=== PATIENT | female | born 1990 | race African-American/Black ===

== ENCOUNTER 2019-04-05 16:13 | Emergency (ER) | payer OTHER ==
[~2019-04-05] VITALS: Ht 157.5 cm; Wt 120.8 kg
--- OUTSIDE RECORDS SUMMARY | 2019-04-05 16:16 | XMS REPORT | Continuity of Care Document ---
Author Author mInfo Address Unknown Phone Unavailable Care Team Providers Care Field Service Technician Poultry Name Role Phone Curiyo Information Fast Orientation Unavailable Unavailable Problems Problem Status Onset Date Classification Date Reported Comments Source NAUSEA/WEAKNESS Active 02/28/2016 [facility] ABSCESS Active 09/12/2015 [facility] Discharge Diagnosis: Abscess of forearm, right 05/27/2015 05/30/2015 [facility] ALLERGIC REACTION Active 05/26/2015 [facility] CONTRACTIONS Active 07/03/2013 [facility] Resolved 10/04/2012 Problem 03/03/2016 [facility] Resolved 10/04/2012 Problem 07/13/2013 [facility] Drug abuse Resolved Problem 03/03/2016 [facility] Drug abuse Resolved Problem 07/13/2013 [facility] NORMAL DELIVERY Active [facility] Medications Medication Details Route Status Patient Instructions Ordering Provider Order Date Source clindamycin 300 mg oral capsule 300 mg=1 cap, PO, Q6H, X 10 day, # 40 cap, 0 Refill(s) Active 05/27/2015 [facility] Tylenol 975 mg, 3 tab, Route: PO, Drug form: TAB, ONCE, Dosing Weight 104.545, kg, Priority: STAT, Start date: 05/27/15 2:10:00, Stop date: 05/27/15 2:10:00Notes: Do not exceed 4 gm/day. (Same as: Tylenol) Inactive 05/27/2015 [facility] influenza virus vaccine, inactivated 0.5 ml, Route: IM, Drug Form: SUSP, Daily, Start date: 07/06/13 9:00:00, Duration: 1 doses or times, Stop date: 07/06/13 9:00:00 IM No Longer Active SYSTEM 07/06/2013 [facility] Multivitamins oral tablet 1 tab, Route: PO, Drug Form: TAB, Dosing Weight 110, kg, Daily, Start date: 07/05/13 9:00:00, Duration: 30 day, Stop date: 08/03/13 9:00:00 PO No Longer Active Asumugha 07/05/2013 [facility] M-M-R II 0.5 mL, Route: SUB-Q, Drug Form: PDR/INJ, Dosing Weight 110, kg, ONCALL, Give only if patient rubella non-immune, Start date: 07/04/13 11:00:00, Duration: 1 doses or times SUB-Q No Longer Active Asumugha 07/04/2013 [facility] Dermoplast 20% topical spray 1 spray, Route: TOP, PRN, Drug form: SPRY, PRN Irritation, Start date: 07/04/13 10:48:00, Duration: 30 day, Stop date: 08/03/13 10:47:00 TOP No Longer Active Asumugha 07/04/2013 [facility] methylergonovine 0.2 mg, 1 mL, Route: IM, Drug form: INJ, PRN, Dosing Weight 110, kg, PRN Other -See Comment, Start date: 07/04/13 10:48:00, Duration: 30 day, Stop date: 08/03/13 10:47:00 IM No Longer Active Asumugha 07/04/2013 [facility] docusate 100 mg, 1 cap, Route: PO, Drug form: CAP, BID, Dosing Weight 110, kg, PRN Constipation, Start date: 07/04/13 10:48:00, Duration: 30 day, Stop date: 08/03/13 10:47:00 PO No Longer Active Asumugha 07/04/2013 [facility] ondansetron 4 mg, 2 mL, Route: IVP, Drug form: INJ, Q8H, Dosing Weight 110, kg, PRN Nausea & Vomiting, Start date: 07/04/13 10:48:00, Duration: 30 day, Stop date: 08/03/13 10:47:00 IVP No Longer Active Asumugha 07/04/2013 [facility] ibuprofen 600 mg, 1 tab, Route: PO, Drug form: TAB, Q6H, Dosing Weight 110, kg, PRN Pain Score 1-5, Start date: 07/04/13 10:48:00, Duration: 30 day, Stop date: 08/03/13 10:47:00 PO No Longer Active Asumugha 07/04/2013 [facility] bisacodyl 15 mg, 3 tab, Route: PO, Drug form: ECTAB, Daily, Dosing Weight 110, kg, PRN Other -See Comment, Start date: 07/04/13 10:48:00, Duration: 30 day, Stop date: 08/03/13 10:47:00 PO No Longer Active Asumugha 07/04/2013 [facility] lanolin topical 1 appl, Route: TOP, PRN, Drug form: CRM, PRN Other -See Comment, Start date: 07/04/13 10:48:00, Duration: 30 day, Stop date: 08/03/13 10:47:00 TOP No Longer Active Asumugha 07/04/2013 [facility] zolpidem 5 mg, 1 tab, Route: PO, Drug form: TAB, Bedtime, Dosing Weight 110, kg, PRN Sleep, Start date: 07/04/13 10:48:00, Duration: 30 day, Stop date: 08/03/13 10:47:00 PO No Longer Active Asumugha 07/04/2013 [facility] acetaminophen-hydrocodone 325 mg-5 mg oral tablet 1 tab, Route: PO, Drug Form: TAB, Dosing Weight 110, kg, Q4H, PRN Pain Score 1-3, Start date: 07/04/13 10:48:00, Duration: 30 day, Stop date: 08/03/13 10:47:00 PO No Longer Active Asumugha 07/04/2013 [facility] acetaminophen 650 mg, 2 tab, Route: PO, Drug form: TAB, Q4H, Dosing Weight 110, kg, PRN Headache 1-3, Start date: 07/04/13 10:48:00, Duration: 30 day, Stop date: 08/03/13 10:47:00 PO No Longer Active Asumugha 07/04/2013 [facility] Lactated Ringers 1000ml+Pitocin 20 units IV (Premix) 20 unit 20 unit, 1,000 mL, Rate: 125 ml/hr, Infuse over: 8 hr, Dosing Weight 110, kg, Route: IV, Total Volume: 1,000 mL, Start date: 07/04/13 10:48:00, Duration: 2 day, Stop date: 07/06/13 10:47:00, Replace Every: 8 hr IV No Longer Active Asumugha 07/04/2013 [facility] Lactated Ringers IV 1,000 mL 1,000 mL, Rate: 100 ml/hr, Infuse over: 10 hr, Route: IV, Dosing Weight 110 kg, Total Volume: 1,000, Start date: 07/04/13 10:48:00, Duration: 30 day, Stop date: 08/03/13 10:47:00 IV No Longer Active Asumugha 07/04/2013 [facility] Demerol HCl 50 mg, Route: IV, Q4H, Dosing Weight 110, kg, Start date: 07/04/13 0:00:00, Duration: 4 day, Stop date: 07/07/13 20:00:00 IV No Longer Active Asumugha 07/04/2013 [facility] Demerol HCl 50 mg, 1 mL, Route: IV, Drug form: INJ, Q4H, Dosing Weight 110, kg, PRN Pain Score 7-10, Start date: 07/03/13 20:30:00, Duration: 4 day, Stop date: 07/07/13 20:29:00 IV No Longer Active Asumugha 07/04/2013 [facility] Phenergan + Sodium Chloride 0.9% IV 50 mL 12.5 mg, 0.5 mL, Route: IVPB, Q4H, Dosing Weight 110, kg, PRN Nausea, Start date: 07/03/13 20:27:00, Duration: 30 day, Stop date: 08/02/13 20:26:00 IVPB No Longer Active Asumugha 07/04/2013 [facility] oxytocin-add to current IV 20 unit, 2 mL, Route: INJ, Drug form: SOLN, ONCALL, Dosing Weight 110, kg, Start date: 07/03/13 14:00:00, Duration: 2 day, Stop date: 07/05/13 13:59:00 INJ No Longer Active Asumugha 07/03/2013 [facility] citric acid-sodium citrate 30 mL, Route: PO, Drug Form: SOLN, Dosing Weight 110, kg, ONCALL, Start date: 07/03/13 14:00:00, Duration: 30 day, Stop date: 08/02/13 13:59:00 PO No Longer Active Asumugha 07/03/2013 [facility] carboprost 250 microgram, 1 mL, Route: IM, Drug form: INJ, ONCALL, Dosing Weight 110, kg, Start date: 07/03/13 14:00:00, Duration: 30 day, Stop date: 08/02/13 13:59:00 IM No Longer Active Asumugha 07/03/2013 [facility] famotidine 20 mg, 2 mL, Route: IVP, Drug form: INJ, ONCALL, Dosing Weight 110, kg, Start date: 07/03/13 14:00:00, Duration: 30 day, Stop date: 08/02/13 13:59:00 IVP No Longer Active Asumugha 07/03/2013 [facility] misoprostol 1,000 microgram, 5 tab, Route: AZ, Drug form: TAB, ONCALL, Dosing Weight 110, kg, Start date: 07/03/13 14:00:00, Duration: 1 doses or times AZ No Longer Active Asumugha 07/03/2013 [facility] methylergonovine 0.2 mg, 1 mL, Route: IM, Drug form: INJ, ONCALL, Dosing Weight 110, kg, Start date: 07/03/13 14:00:00, Duration: 30 day, Stop date: 08/02/13 13:59:00 IM No Longer Active Asumugha 07/03/2013 [facility] Cervidil 10 mg, 1 supp, Route: VAG, Drug form: INS, ONCE, Dosing Weight 110, kg, Start date: 07/03/13 13:59:00, Duration: 1 doses or times, Stop date: 07/03/13 13:59:00 VAG No Longer Active Asumugha 07/03/2013 [facility] terbutaline 0.25 mg, 0.25 mL, Route: SUB-Q, Drug form: INJ, PRN, Dosing Weight 110, kg, PRN Other -See Comment, Start date: 07/03/13 13:59:00, Duration: 1 doses or times, Stop date: Limited # of times SUB-Q No Longer Active Asumugha 07/03/2013 [facility] ondansetron 4 mg, 2 mL, Route: IVP, Drug form: INJ, Q8H, Dosing Weight 110, kg, PRN Nausea & Vomiting, Start date: 07/03/13 13:59:00, Duration: 30 day, Stop date: 08/02/13 13:58:00 IVP No Longer Active Asumugha 07/03/2013 [facility] lidocaine 1% 20 mL, Route: PERCUT, Drug Form: INJ, Dosing Weight 110, kg, PRN, PRN Other -See Comment, Start date: 07/03/13 13:59:00, Duration: 1 doses or times, Stop date: Limited # of times PERCUT No Longer Active Asumugha 07/03/2013 [facility] Lactated Ringers IV 1,000 mL 1,000 mL, Rate: 125 ml/hr, Infuse over: 8 hr, Route: IV, Dosing Weight 110 kg, Total Volume: 1,000, Start date: 07/03/13 13:59:00, Duration: 30 day, Stop date: 08/02/13 13:58:00 IV No Longer Active Asumugha 07/03/2013 [facility] Lactated Ringers 1000ml+Pitocin 20 units IV (Premix) 20 unit 20 unit, 1,000 mL, Rate: 125 ml/hr, Infuse over: 8 hr, Dosing Weight 110, kg, Route: IV, Total Volume: 1,000 mL, Start date: 07/03/13 13:59:00, Duration: 2 day, Stop date: 07/05/13 13:58:00, Replace Every: 8 hr IV No Longer Active Asumugha 07/03/2013 [facility] lidocaine 1% injectable solution 0.25 mL, Route: INTRADERM, Drug Form: INJ, Dosing Weight 110, kg, PRN, PRN Other -See Comment, Start date: 07/03/13 13:59:00, Duration: 30 day, Stop date: 08/02/13 13:58:00 INTRADERM No Longer Active Asumugha 07/03/2013 [facility] Lactated Ringers Injection IV 1,000 mL 1,000 mL, Rate: 100 ml/hr, Infuse over: 10 hr, Route: IV, Dosing Weight 110 kg, Total Volume: 1,000, Bolus for regional anesthesia per unit protocol, Start date: 07/03/13 13:59:00, Duration: 30 day, Stop date: 08/02/13 13:58:00 IV No Longer Active Asumugha 07/03/2013 [facility] Lactated Ringers 1000ml+Pitocin 20 units IV (Premix Titrate) 20 unit 20 unit, 1,000 mL, Rate: Titrate, Dosing Weight 110, kg, Route: IV, Total Volume: 1,000 mL, Start date: 07/03/13 13:58:00, Duration: 2 day, Stop date: 07/05/13 13:57:00, Replace Every: 24 hr IV No Longer Active Asumugha 07/03/2013 [facility] Allergies, Adverse Reactions, Alerts Substance Category Reaction Severity Reaction type Status Date Reported Comments Source Stadol Assertion itch Drug allergy Active [facility] sulfa drugs Assertion Drug allergy Active [facility] Immunizations Immunization Date Given Site Status Last Updated Comments Source influenza virus vaccine, inactivated 07/06/2013 Right deltoid completed Efren [facility] influenza virus vaccine, inactivated 07/06/2013 completed Efren [facility] Results Order Name Results Value Reference Range Date Interpretation Comments Source HEMATOLOGY Hct 28.9 36.0 - 48.0 07/05/2013 LOW [facility] HEMATOLOGY Hgb 9.2 12.0 - 16.0 07/05/2013 LOW [facility] BLOOD BANK RESULTS Rhig Reqd See Note 1 (07/03/2013 15:25:00) 07/03/2013 Normal <sup>1</sup>Result Comment: 07/03/2013 17:07 [id number]
This patient is not a candidate for Rh(O)D immune globulin. [facility] BLOOD BANK RESULTS Antibody Scrn Negative (07/03/2013 15:25:00) 07/03/2013 Normal [facility] BLOOD BANK RESULTS ABO/Rh O POS 07/03/2013 Unknown [facility] HEMATOLOGY Segs-Bands # 4.2 1.5 - 8.1 07/03/2013 Normal [facility] HEMATOLOGY Basophils # 0.0 0.0 - 0.2 07/03/2013 Normal [facility] HEMATOLOGY Eosinophils # 0.1 0.0 - 0.5 07/03/2013 Normal [facility] HEMATOLOGY Lymphocytes # 1.0 1.0 - 5.5 07/03/2013 Normal [facility] HEMATOLOGY Monocytes # 0.4 0.0 - 0.8 07/03/2013 Normal [facility] HEMATOLOGY Basophils 0.2 0.0 - 1.0 07/03/2013 Normal [facility] HEMATOLOGY Segs 73.4 45.0 - 75.0 07/03/2013 Normal [facility] HEMATOLOGY Lymphocytes 17.8 20.0 - 40.0 07/03/2013 LOW [facility] HEMATOLOGY Monocytes 7.6 2.0 - 12.0 07/03/2013 Normal [facility] HEMATOLOGY Eosinophils 1.0 0.0 - 4.0 07/03/2013 Normal [facility] HEMATOLOGY Platelet 300 133 - 450 07/03/2013 Normal [facility] HEMATOLOGY MPV 8.1 7.4 - 10.4 07/03/2013 Normal [facility] HEMATOLOGY RBC 3.86 4.20 - 5.40 07/03/2013 LOW [facility] HEMATOLOGY Hgb 11.5 12.0 - 16.0 07/03/2013 LOW [facility] HEMATOLOGY WBC 5.7 3.7 - 10.4 07/03/2013 Normal [facility] HEMATOLOGY MCV 94.7 81.0 - 99.0 07/03/2013 Normal [facility] HEMATOLOGY MCH 29.8 27.0 - 31.0 07/03/2013 Normal [facility] HEMATOLOGY Hct 36.6 36.0 - 48.0 07/03/2013 Normal [facility] HEMATOLOGY RDW 14.5 11.5 - 14.5 07/03/2013 Normal [facility] HEMATOLOGY MCHC 31.5 32.0 - 36.0 07/03/2013 LOW [facility] IMMUNOLOGY Treponemal Scr Non Reactive *NA* (07/03/2013 15:25:00) Non Reactive 07/03/2013 [facility] IMMUNOLOGY Hep Bs Ag Negative *NA* (07/03/2013 15:25:00) Negative 07/03/2013 NA [facility] CHEMISTRY Temp Cord Jg 37.0 07/03/2013 NA [facility] CHEMISTRY BE Cord Jg -4 07/03/2013 NA [facility] CHEMISTRY pH Cord Jg 7.31 7.16 - 7.41 07/03/2013 Normal [facility] CHEMISTRY PCO2 Cord Jg 45 31 - 65 07/03/2013 Normal [facility] CHEMISTRY HCO3 Cord Jg 23 07/03/2013 NA [facility] CHEMISTRY PO2 Cord Jg 24 13 - 39 07/03/2013 Normal [facility] Pathology Reports No Data Provided for This Section Diagnostic Reports No Data Provided for This Section Consultation Notes No Data Provided for This Section Discharge Summaries No Data Provided for This Section History and Physicals No Data Provided for This Section Vital Signs Vital Sign Value Date Comments Source Weight 104.545 02/29/2016 [facility] Systolic (mm Hg) 104 02/29/2016 [facility] Diastolic (mm Hg) 70 02/29/2016 [facility] Temperature Oral (F) 98.1 F 02/29/2016 [facility] Respitory Rate 18 02/29/2016 [facility] Heart Rate 82 02/29/2016 [facility] Height 157.48 cm 02/29/2016 [facility] BMI Calculated 42.16 02/29/2016 [facility] Weight 102.273 09/13/2015 [facility] BMI Calculated 39.94 09/13/2015 [facility] Height 160.02 cm 09/13/2015 [facility] Temperature Oral (F) 98.6 F 09/13/2015 [facility] Systolic (mm Hg) 122 09/13/2015 [facility] Diastolic (mm Hg) 81 09/13/2015 [facility] Heart Rate 100 09/13/2015 [facility] Respitory Rate 18 09/13/2015 [facility] Systolic (mm Hg) 101 05/27/2015 [facility] Diastolic (mm Hg) 80 05/27/2015 [facility] Heart Rate 112 05/27/2015 [facility] Respitory Rate 20 05/27/2015 [facility] Temperature Oral (F) 100.5 F 05/27/2015 [facility] Temperature Oral (F) 98.0 F 05/27/2015 [facility] Respitory Rate 18 05/27/2015 [facility] Heart Rate 105 05/27/2015 [facility] BMI Calculated 42.16 05/27/2015 [facility] Weight 104.545 05/27/2015 [facility] Height 157.48 cm 05/27/2015 [facility] Systolic (mm Hg) 119 05/27/2015 [facility] Diastolic (mm Hg) 75 05/27/2015 [facility] Temperature Oral (F) 97.9 F 07/06/2013 [facility] Heart Rate 99 07/06/2013 [facility] Diastolic (mm Hg) 82 07/06/2013 [facility] Systolic (mm Hg) 124 07/06/2013 [facility] Respitory Rate 18 07/06/2013 [facility] Respitory Rate 18 07/06/2013 [facility] Heart Rate 92 07/06/2013 [facility] Systolic (mm Hg) 107 07/06/2013 [facility] Diastolic (mm Hg) 77 07/06/2013 [facility] Temperature Oral (F) 97.7 F 07/06/2013 [facility] Respitory Rate 18 07/05/2013 [facility] Systolic (mm Hg) 126 07/05/2013 [facility] Diastolic (mm Hg) 71 07/05/2013 [facility] Heart Rate 116 07/05/2013 [facility] Temperature Oral (F) 98.2 F 07/05/2013 [facility] Weight 110 07/04/2013 [facility] Height 157.48 cm 07/04/2013 [facility] Height 157.48 cm 07/03/2013 [facility] Weight 110 07/03/2013 [facility] Encounters Location Location Details Encounter Type Encounter Number Reason For Visit Attending Provider ADM Date DC Date Status Source [facility] Inpatient [id number] KRISTAL URIOSTEGUI 07/03/2013 07/06/2013 Discharged [facility] [id number] Tanvir East 05/27/2015 05/27/2015 [facility] [id number] Isatunathaniel Pennington 09/13/2015 09/13/2015 [facility] [id number] Trace Lugo 02/29/2016 02/29/2016 [facility] Procedures Procedure Code Date Perfomer Comments Source Repair of Other Current Obstetric Laceration [id number] 07/04/2013 [facility] Medical Induction of Labor [id number] 07/03/2013 [facility] Assessment and Plan No Data Provided for This Section Plan of Care No Data Provided for This Section Social History Social History Date Source Social History TypeResponse Smoking Status Never smoker; Exposure to Tobacco Smoke None; Cigarette Smoking Last 365 Days No; Reg Smoking Cessation Counseling No 02/29/2016 [facility] Family History No Data Provided for This Section Advance Directives No Data Provided for This Section Functional Status No Data Provided for This Section
--- OUTSIDE RECORDS SUMMARY | 2019-04-05 16:17 | XMS REPORT | Summary of Care ---
Author Author [facility] Organization [facility] Address Unknown Phone Unavailable Encounter ESTHELA Alberts(JUWAN) [id number] Date(s): 09/13/15 - 09/13/15 [facility] [address] [place] [address]- Discharge Disposition: Non-Emergent Attending Physician: Isatu Pennington DO Vital Signs Most recent to 1 oldest [Reference Range]: Height 160.02 cm (09/13/15 12:55 AM) Temperature Oral 98.6 DegF [96.4-99.1 DegF] (09/13/15 12:55 AM) Blood Pressure 122/81 mmHg [90-140/60-90 mmHg] (09/13/15 12:55 AM) Respiratory Rate 18 BRMIN [14-20 BRMIN] (09/13/15 12:55 AM) Peripheral Pulse 100 bpm Rate [60-100 bpm] (09/13/15 12:55 AM) Weight 102.273 kg (09/13/15 12:55 AM) Body Mass Index 39.94 m2 (09/13/15 12:55 AM) Problem List Condition Effective Dates Status Health Status Informant Drug Resolved abuse(Confirmed) (Confirmed) 10/04/12 - 07/04/13 Resolved Allergies, Adverse Reactions, Alerts Substance Reaction Severity Status Stadol itch Active sulfa drugs Active Medications No data available for this section Results No data available for this section Immunizations Vaccine Date Refusal Reason influenza virus vaccine, inactivated 07/05/13 Procedures No data available for this section Social History Social History Type Response Smoking Status Never smoker; Exposure to Tobacco Smoke None; Cigarette Smoking Last 365 Days No; Reg Smoking Cessation Counseling No Assessment and Plan No data available for this section
--- OUTSIDE RECORDS SUMMARY | 2019-04-05 16:17 | XMS REPORT | Summary of Care ---
Author Author [facility] Organization [facility] Address Unknown Phone Unavailable Encounter ESTHELA Alberts(JUWAN) [id number] Date(s): 05/26/15 - 05/27/15 [facility] [address] [place] [address]- [phone] Discharge Diagnosis: Abscess of forearm, right Discharge Disposition: Home Attending Physician: Tanvir East MD Vital Signs Most recent to 1 2 oldest [Reference Range]: Height 157.48 cm (05/26/15 8:28 PM) Most recent to 1 2 oldest [Reference Range]: Temperature Oral 100.5 DegF 98.0 DegF [96.4-99.1 DegF] *HI* (05/26/15 8:28 PM) (05/27/15 2:15 AM) Most recent to 1 2 oldest [Reference Range]: Blood Pressure 101/80 mmHg 119/75 mmHg [90-140/60-90 mmHg] (05/27/15 2:15 AM) (05/26/15 8:28 PM) Most recent to 1 2 oldest [Reference Range]: Respiratory Rate 20 BRMIN 18 BRMIN [14-20 BRMIN] (05/27/15 2:15 AM) (05/26/15 8:28 PM) Most recent to 1 2 oldest [Reference Range]: Peripheral Pulse 112 bpm 105 bpm Rate [60-100 bpm] *HI* *HI* (05/27/15 2:15 AM) (05/26/15 8:28 PM) Most recent to 1 2 oldest [Reference Range]: Weight 104.545 kg (05/26/15 8:28 PM) Most recent to 1 2 oldest [Reference Range]: Body Mass Index 42.16 m2 (05/26/15 8:28 PM) Problem List Condition Effective Dates Status Health Status Informant Drug Resolved abuse(Confirmed) (Confirmed) 10/04/12 - 07/04/13 Resolved Allergies, Adverse Reactions, Alerts Substance Reaction Severity Status Stadol itch Active Medications clindamycin 300 mg oral capsule 300 mg=1 cap, PO, Q6H, X 10 day, # 40 cap, 0 Refill(s) Start Date: 05/27/15 Stop Date: 06/06/15 Status: Ordered Tylenol 975 mg, 3 tab, Route: PO, Drug form: TAB, ONCE, Dosing Weight 104.545, kg, Prior ity: STAT, Start date: 05/27/15 2:10:00, Stop date: 05/27/15 2:10:00 Notes: Do not exceed 4 gm/day. (Same as: Tylenol) Start Date: 05/27/15 Stop Date: 05/27/15 Status: Completed Results No data available for this section [...]
--- OUTSIDE RECORDS SUMMARY | 2019-04-05 16:17 | XMS REPORT | CCD ---
Author Author Auto Generated Organization [facility] Address Unknown Phone Unavailable Care Team Providers Care Nurse Ortho Name Role Phone Bassam Olivarez CP Allergies, Adverse Reactions, Alerts Substance Reaction Status Stadol itch Active Problem List Condition Effective Dates Status Drug abuse Resolved 10/04/2012 - Resolved 07/04/2013 Medications Medication Instructions Start Date End Date Status Phenergan + Sodium 12.5 mg, 0.5 mL, Route: IVPB, Q4H, 07/03/2013 07/06/2013 Discontinued Chloride 0.9% IV 50 Dosing Weight 110, kg, PRN Nausea, mL Start date: 07/03/13 20:27:00, Duration: 30 day, Stop date: 08/02/13 20:26:00 influenza virus 0.5 ml, Route: IM, Drug Form: SUSP, 07/06/2013 07/06/2013 Completed vaccine, inactivated Daily, Start date: 07/06/13 9:00:00, Duration: 1 doses or times, Stop date: 07/06/13 9:00:00 Cervidil 10 mg, 1 supp, Route: VAG, Drug 07/03/2013 07/03/2013 Completed form: INS, ONCE, Dosing Weight 110, kg, Start date: 07/03/13 13:59:00, Duration: 1 doses or times, Stop date: 07/03/13 13:59:00 Lactated Ringers 20 unit, 1,000 mL, Rate: Titrate, 07/03/2013 07/04/2013 Discontinued 1000ml+Pitocin 20 Dosing Weight 110, kg, Route: IV, units IV (Premix Total Volume: 1,000 mL, Start date: Titrate) 20 unit 07/03/13 13:58:00, Duration: 2 day, Stop date: 07/05/13 13:57:00, Replace Every: 24 hr Dermoplast 20% 1 spray, Route: TOP, PRN, Drug 07/04/2013 07/06/2013 Discontinued topical spray form: SPRY, PRN Irritation, Start date: 07/04/13 10:48:00, Duration: 30 day, Stop date: 08/03/13 10:47:00 M-M-R II 0.5 mL, Route: SUB-Q, Drug Form: 07/04/2013 07/06/2013 Discontinued PDR/INJ, Dosing Weight 110, kg, ONCALL, Give only if patient rubella non-immune, Start date: 07/04/13 11:00:00, Duration: 1 doses or times methylergonovine 0.2 mg, 1 mL, Route: IM, Drug form: 07/04/2013 07/06/2013 Discontinued INJ, PRN, Dosing Weight 110, kg, PRN Other -See Comment, Start date: 07/04/13 10:48:00, Duration: 30 day, Stop date: 08/03/13 10:47:00 docusate 100 mg, 1 cap, Route: PO, Drug 07/04/2013 07/06/2013 Discontinued form: CAP, BID, Dosing Weight 110, kg, PRN Constipation, Start date: 07/04/13 10:48:00, Duration: 30 day, Stop date: 08/03/13 10:47:00 ondansetron 4 mg, 2 mL, Route: IVP, Drug form: 07/04/2013 07/06/2013 Discontinued INJ, Q8H, Dosing Weight 110, kg, PRN Nausea & Vomiting, Start date: 07/04/13 10:48:00, Duration: 30 day, Stop date: 08/03/13 10:47:00 1 tab, Route: PO, Drug Form: TAB, 07/05/2013 07/06/2013 Discontinued Multivitamins oral Dosing Weight 110, kg, Daily, Start tablet date: 07/05/13 9:00:00, Duration: 30 day, Stop date: 08/03/13 9:00:00 ibuprofen 600 mg, 1 tab, Route: PO, Drug 07/04/2013 07/06/2013 Discontinued form: TAB, Q6H, Dosing Weight 110, kg, PRN Pain Score 1-5, Start date: 07/04/13 10:48:00, Duration: 30 day, Stop date: 08/03/13 10:47:00 bisacodyl 15 mg, 3 tab, Route: PO, Drug form: 07/04/2013 07/06/2013 Discontinued ECTAB, Daily, Dosing Weight 110, kg, PRN Other -See Comment, Start date: 07/04/13 10:48:00, Duration: 30 day, Stop date: 08/03/13 10:47:00 lanolin topical 1 appl, Route: TOP, PRN, Drug form: 07/04/2013 07/06/2013 Discontinued CRM, PRN Other -See Comment, Start date: 07/04/13 10:48:00, Duration: 30 day, Stop date: 08/03/13 10:47:00 bisacodyl 10 mg, 1 supp, Route: MN, Drug 07/04/2013 07/06/2013 Discontinued form: SUPP, PRN, Dosing Weight 110, kg, PRN Other -See Comment, Start date: 07/04/13 10:48:00, Duration: 30 day, Stop date: 08/03/13 10:47:00 zolpidem 5 mg, 1 tab, Route: PO, Drug form: 07/04/2013 07/06/2013 Discontinued TAB, Bedtime, Dosing Weight 110, kg, PRN Sleep, Start date: 07/04/13 10:48:00, Duration: 30 day, Stop date: 08/03/13 10:47:00 acetaminophen-hydroc 1 tab, Route: PO, Drug Form: TAB, 07/04/2013 07/06/2013 Discontinued odone 325 mg-5 mg Dosing Weight 110, kg, Q4H, PRN oral tablet Pain Score 1-3, Start date: 07/04/13 10:48:00, Duration: 30 day, Stop date: 08/03/13 10:47:00 ibuprofen 800 mg, 1 tab, Route: PO, Drug 07/04/2013 07/06/2013 Discontinued form: TAB, Q8H, Dosing Weight 110, kg, PRN Pain Score 6-10, Start date: 07/04/13 10:48:00, Duration: 30 day, Stop date: 08/03/13 10:47:00 acetaminophen 650 mg, 2 tab, Route: PO, Drug 07/04/2013 07/06/2013 Discontinued form: TAB, Q4H, Dosing Weight 110, kg, PRN Headache 1-3, Start date: 07/04/13 10:48:00, Duration: 30 day, Stop date: 08/03/13 10:47:00 acetaminophen-hydroc 2 tab, Route: PO, Drug Form: TAB, 07/04/2013 07/06/2013 Discontinued odone 325 mg-5 mg Dosing Weight 110, kg, Q4H, PRN oral tablet Pain Score 4-6, Start date: 07/04/13 10:48:00, Duration: 30 day, Stop date: 08/03/13 10:47:00 Lactated Ringers 20 unit, 1,000 mL, Rate: 125 ml/hr, 07/04/2013 07/06/2013 Completed 1000ml+Pitocin 20 Infuse over: 8 hr, Dosing Weight units IV (Premix) 20 110, kg, Route: IV, Total Volume: unit 1,000 mL, Start date: 07/04/13 10:48:00, Duration: 2 day, Stop date: 07/06/13 10:47:00, Replace Every: 8 hr Lactated Ringers IV 1,000 mL, Rate: 100 ml/hr, Infuse 07/04/2013 07/06/2013 Discontinued 1,000 mL over: 10 hr, Route: IV, Dosing Weight 110 kg, Total Volume: 1,000, Start date: 07/04/13 10:48:00, Duration: 30 day, Stop date: 08/03/13 10:47:00 terbutaline 0.25 mg, 0.25 mL, Route: SUB-Q, 07/03/2013 07/04/2013 Discontinued Drug form: INJ, PRN, Dosing Weight 110, kg, PRN Other -See Comment, Start date: 07/03/13 13:59:00, Duration: 1 doses or times, Stop date: Limited # of times oxytocin-add to 20 unit, 2 mL, Route: INJ, Drug 07/03/2013 07/04/2013 Discontinued current IV form: SOLN, ONCALL, Dosing Weight 110, kg, Start date: 07/03/13 14:00:00, Duration: 2 day, Stop date: 07/05/13 13:59:00 citric acid-sodium 30 mL, Route: PO, Drug Form: SOLN, 07/03/2013 07/04/2013 Discontinued citrate Dosing Weight 110, kg, ONCALL, Start date: 07/03/13 14:00:00, Duration: 30 day, Stop date: 08/02/13 13:59:00 carboprost 250 microgram, 1 mL, Route: IM, 07/03/2013 07/04/2013 Discontinued Drug form: INJ, ONCALL, Dosing Weight 110, kg, Start date: 07/03/13 14:00:00, Duration: 30 day, Stop date: 08/02/13 13:59:00 ondansetron 4 mg, 2 mL, Route: IVP, Drug form: 07/03/2013 07/04/2013 Discontinued INJ, Q8H, Dosing Weight 110, kg, PRN Nausea & Vomiting, Start date: 07/03/13 13:59:00, Duration: 30 day, Stop date: 08/02/13 13:58:00 famotidine 20 mg, 2 mL, Route: IVP, Drug form: 07/03/2013 07/04/2013 Discontinued INJ, ONCALL, Dosing Weight 110, kg, Start date: 07/03/13 14:00:00, Duration: 30 day, Stop date: 08/02/13 13:59:00 misoprostol 1,000 microgram, 5 tab, Route: MN, 07/03/2013 07/04/2013 Discontinued Drug form: TAB, ONCALL, Dosing Weight 110, kg, Start date: 07/03/13 14:00:00, Duration: 1 doses or times lidocaine 1% 20 mL, Route: PERCUT, Drug Form: 07/03/2013 07/04/2013 Discontinued INJ, Dosing Weight 110, kg, PRN, PRN Other -See Comment, Start date: 07/03/13 13:59:00, Duration: 1 doses or times, Stop date: Limited # of times methylergonovine 0.2 mg, 1 mL, Route: IM, Drug form: 07/03/2013 07/04/2013 Discontinued INJ, ONCALL, Dosing Weight 110, kg, Start date: 07/03/13 14:00:00, Duration: 30 day, Stop date: 08/02/13 13:59:00 Lactated Ringers IV 1,000 mL, Rate: 125 ml/hr, Infuse 07/03/2013 07/04/2013 Discontinued 1,000 mL over: 8 hr, Route: IV, Dosing Weight 110 kg, Total Volume: 1,000, Start date: 07/03/13 13:59:00, Duration: 30 day, Stop date: 08/02/13 13:58:00 Lactated Ringers 20 unit, 1,000 mL, Rate: 125 ml/hr, 07/03/2013 07/04/2013 Discontinued 1000ml+Pitocin 20 Infuse over: 8 hr, Dosing Weight units IV (Premix) 20 110, kg, Route: IV, Total Volume: unit 1,000 mL, Start date: 07/03/13 13:59:00, Duration: 2 day, Stop date: 07/05/13 13:58:00, Replace Every: 8 hr lidocaine 1% 0.25 mL, Route: INTRADERM, Drug 07/03/2013 07/04/2013 Discontinued injectable solution Form: INJ, Dosing Weight 110, kg, PRN, PRN Other -See Comment, Start date: 07/03/13 13:59:00, Duration: 30 day, Stop date: 08/02/13 13:58:00 Lactated Ringers 1,000 mL, Rate: 100 ml/hr, Infuse 07/03/2013 07/04/2013 Discontinued Injection IV 1,000 over: 10 hr, Route: IV, Dosing mL Weight 110 kg, Total Volume: 1,000, Bolus for regional anesthesia per unit protocol, Start date: 07/03/13 13:59:00, Duration: 30 day, Stop date: 08/02/13 13:58:00 influenza virus 0.5 ml, Route: IM, Drug Form: SUSP, 07/06/2013 07/05/2013 Completed vaccine, inactivated Start date: 07/06/13 9:00:00, Stop date: 07/06/13 9:00:00 Demerol HCl 50 mg, Route: IV, Q4H, Dosing 07/04/2013 07/03/2013 Canceled Weight 110, kg, Start date: 07/04/13 0:00:00, Duration: 4 day, Stop date: 07/07/13 20:00:00 Demerol HCl 50 mg, 1 mL, Route: IV, Drug form: 07/03/2013 07/06/2013 Discontinued INJ, Q4H, Dosing Weight 110, kg, PRN Pain Score 7-10, Start date: 07/03/13 20:30:00, Duration: 4 day, Stop date: 07/07/13 20:29:00 Immunizations Vaccine Date Status influenza virus vaccine, inactivated 07/05/2013 Auth (Verified) Vital Signs Most recent to oldest [Reference Range]: 1 2 3 Height 157.48 cm (07/04/2013 13:50:00) 157.48 cm (07/03/2013 13:20:00) Temperature Oral [96.4-99.1 DegF] 97.9 DegF (07/06/2013 07:34:00) 97.7 DegF (07/05/2013 23:20:00) 98.2 DegF (07/05/2013 16:52:00) Systolic Blood Pressure [90-140 mmHg] 124 mmHg (07/06/2013 07:34:00) 107 mmHg (07/05/2013 23:20:00) 126 mmHg (07/05/2013 16:52:00) Diastolic Blood Pressure [60-90 mmHg] 82 mmHg (07/06/2013 07:34:00) 77 mmHg (07/05/2013 23:20:00) 71 mmHg (07/05/2013 16:52:00) Respiratory Rate [14-20 BRMIN] 18 BRMIN (07/06/2013 07:34:00) 18 BRMIN (07/05/2013 23:20:00) 18 BRMIN (07/05/2013 16:52:00) Peripheral Pulse Rate [60-100 bpm] 99 bpm (07/06/2013 07:34:00) 92 bpm (07/05/2013 23:20:00) 116 bpm *HI* (07/05/2013 16:52:00) Weight 110 kg (07/04/2013 13:50:00) 110 kg (07/03/2013 13:20:00) Results BLOOD BANK RESULTS Most recent to oldest [Reference Range]: 1 2 ABO/Rh O POS *Unknown* (07/03/2013 15:25:00) Antibody Scrn Negative (07/03/2013 15:25:00) Rhig Reqd See Note 1 (07/03/2013 15:25:00) 1Result Comment: 07/03/2013 17:07 [id number] This patient is not a candidate for Rh(O)D immune globulin. CHEMISTRY Most recent to oldest [Reference Range]: 1 2 Temp Cord Jg 37.0 DegC *NA* (07/03/2013 08:22:31) pH Cord Jg [7.16-7.41] 7.31 (07/03/2013 08:22:31) PCO2 Cord Jg [31-65 mmHg] 45 mmHg (07/03/2013 08:22:31) PO2 Cord Jg [13-39 mmHg] 24 mmHg (07/03/2013 08:22:31) HCO3 Cord Jg 23 mMol/L *NA* (07/03/2013 08:22:31) BE Cord Jg -4 mMol/L *NA* (07/03/2013 08:22:31) HEMATOLOGY Most recent to oldest [Reference Range]: 1 2 WBC [3.7-10.4 K/CMM] 5.7 K/CMM (07/03/2013 15:25:00) RBC [4.20-5.40 M/CMM] 3.86 M/CMM *LOW* (07/03/2013 15:25:00) Hgb [12.0-16.0 g/dL] 9.2 g/dL *LOW* (07/05/2013 05:59:00) 11.5 g/dL *LOW* (07/03/2013 15:25:00) Hct [36.0-48.0 %] 28.9 % *LOW* (07/05/2013 05:59:00) 36.6 % (07/03/2013 15:25:00) MCV [81.0-99.0 fL] 94.7 fL (07/03/2013 15:25:00) MCH [27.0-31.0 pg] 29.8 pg (07/03/2013 15:25:00) MCHC [32.0-36.0 g/dL] 31.5 g/dL *LOW* (07/03/2013 15:25:00) RDW [11.5-14.5 %] 14.5 % (07/03/2013 15:25:00) Platelet [133-450 K/CMM] 300 K/CMM (07/03/2013 15:25:00) MPV [7.4-10.4 fL] 8.1 fL (07/03/2013 15:25:00) Segs [45.0-75.0 %] 73.4 % (07/03/2013 15:25:00) Lymphocytes [20.0-40.0 %] 17.8 % *LOW* (07/03/2013 15:25:00) Monocytes [2.0-12.0 %] 7.6 % (07/03/2013 15:25:00) Eosinophils [0.0-4.0 %] 1.0 % (07/03/2013 15:25:00) Basophils [0.0-1.0 %] 0.2 % (07/03/2013 15:25:00) Segs-Bands # [1.5-8.1 K/CMM] 4.2 K/CMM (07/03/2013 15:25:00) Lymphocytes # [1.0-5.5 K/CMM] 1.0 K/CMM (07/03/2013 15:25:00) Monocytes # [0.0-0.8 K/CMM] 0.4 K/CMM (07/03/2013 15:25:00) Eosinophils # [0.0-0.5 K/CMM] 0.1 K/CMM (07/03/2013 15:25:00) Basophils # [0.0-0.2 K/CMM] 0.0 K/CMM (07/03/2013 15:25:00) IMMUNOLOGY Most recent to oldest [Reference Range]: 1 2 Treponemal Scr [Non Reactive] Non Reactive *NA* (07/03/2013 15:25:00) Hep Bs Ag [Negative] Negative *NA* (07/03/2013 15:25:00) Procedures Procedures Date Related Diagnosis Medical Induction of Labor 07/03/2013 00:00:00 Repair of Other Current Obstetric Laceration 07/04/2013 00:00:00
--- OUTSIDE RECORDS SUMMARY | 2019-04-05 16:18 | XMS REPORT | Summary of Care ---
Author Author [facility] Organization [facility] Address Unknown Phone Unavailable Encounter ESTHELA Alberts(JUWAN) [id number] Date(s): 02/28/16 - 02/29/16 [facility] [address] [place] [address]- [phone] Discharge Disposition: Non-Emergent Attending Physician: Trace Lugo MD Vital Signs Most recent to 1 oldest [Reference Range]: Height 157.48 cm (02/29/16 12:03 AM) Temperature Oral 98.1 DegF [96.4-99.1 DegF] (02/29/16 12:03 AM) Blood Pressure 104/70 mmHg [90-140/60-90 mmHg] (02/29/16 12:03 AM) Respiratory Rate 18 BRMIN [14-20 BRMIN] (02/29/16 12:03 AM) Peripheral Pulse 82 bpm Rate [60-100 bpm] (02/29/16 12:03 AM) Weight 104.545 kg (02/29/16 12:03 AM) Body Mass Index 42.16 m2 (02/29/16 12:03 AM) Problem List Condition Effective Dates Status Health Status Informant Drug Resolved abuse(Confirmed) (Confirmed) 10/04/12 - 07/04/13 Resolved Allergies, Adverse Reactions, Alerts Substance Reaction Severity Status sulfa drugs Active Medications No data available [...]
--- OUTSIDE RECORDS SUMMARY | 2019-04-05 16:18 | XMS REPORT ---
Author Author [facility] Address Unknown Phone Unavailable Care Team Providers Care Monument Setter Name Role Phone Unavailable Unavailable Payers Payer Name Policy Type Policy Number Effective Date Expiration Date Problems This patient has no known problems. Allergies, Adverse Reactions, Alerts Allergy Name Allergy Type Status Severity Reaction(s) Onset Date Inactive Date Treating Clinician Comments Sulfa (Sulfonamide Antibiotics) DA Active SV 2018-06-21 00:00:00 Medications This patient has no known medications.
[2019-04-05 17:32] VITALS: BP 127/68
== END 2019-04-05 17:03 | disposition home or self-care (01) ==
LOC: FSED 16:13
DX: H57.11 Ocular pain, right eye (principal)
CPT/HCPCS: 99283

== ENCOUNTER 2019-04-06 13:23 | Emergency (ER) | payer OTHER ==
[~2019-04-06] VITALS: Ht 157.5 cm; Wt 116.1 kg
--- OUTSIDE RECORDS SUMMARY | 2019-04-06 13:26 | XMS REPORT | Continuity of Care Document ---
Author Author [employer] Address Unknown Phone Unavailable Care Team Providers Care Diamond Cleaver Name Role Phone [employer] Unavailable Unavailable Problems Problem Status Onset Date Classification Date Reported Comments Source NAUSEA/WEAKNESS Active 02/28/2016 [facility] ABSCESS Active 09/12/2015 [facility] Discharge Diagnosis: Abscess of forearm, right 05/27/2015 05/30/2015 [facility] ALLERGIC REACTION Active 05/26/2015 [facility] CONTRACTIONS Active 07/03/2013 [facility] Resolved 10/04/2012 Problem 03/03/2016 [facility] Resolved 10/04/2012 Problem 07/13/2013 [facility] Drug abuse Resolved Problem 03/03/2016 [facility] Drug abuse Resolved Problem 07/13/2013 [facility] NORMAL DELIVERY Active [facility] Medications Medication Details Route Status Patient Instructions Ordering Provider Order Date Source clindamycin 300 mg oral capsule 300 mg=1 cap, PO, Q6H, X 10 day, # 40 cap, 0 Refill(s) Active 05/27/2015 [facility] Tylenol 975 mg, 3 tab, Route: PO, Drug form: TAB, ONCE, Dosing Weight 104.545, kg, Priority: STAT, Start date: 05/27/15 2:10:00, Stop date: 05/27/15 2:10:00Notes: Do not exceed 4 gm/day. (Same as: Tylenol) Inactive 05/27/2015 [facility] influenza virus vaccine, inactivated 0.5 ml, Route: IM, Drug Form: SUSP, Daily, Start date: 07/06/13 9:00:00, Duration: 1 doses or times, Stop date: 07/06/13 9:00:00 IM No Longer Active SYSTEM 07/06/2013 [facility] Multivitamins oral tablet 1 tab, Route: PO, [...] times SUB-Q No Longer Active Asumugha 07/04/2013 [facility] Dermoplast 20% topical spray 1 spray, Route: TOP, PRN, Drug form: SPRY, PRN Irritation, Start date: 07/04/13 10:48:00, Duration: 30 day, Stop date: 08/03/13 10:47:00 TOP No Longer Active Asumugha 07/04/2013 [facility] methylergonovine 0.2 mg, 1 mL, Route: IM, Drug form: INJ, PRN, Dosing Weight 110, kg, PRN Other -See Comment, Start date: 07/04/13 10:48:00, Duration: 30 day, Stop date: 08/03/13 10:47:00 IM No Longer Active Asumugha 07/04/2013 [facility] docusate 100 mg, 1 cap, Route: PO, Drug form: CAP, BID, Dosing Weight 110, kg, PRN Constipation, Start date: 07/04/13 10:48:00, Duration: 30 day, Stop date: 08/03/13 10:47:00 PO No Longer Active Asumugha 07/04/2013 [facility] ondansetron 4 mg, 2 mL, Route: IVP, Drug form: INJ, Q8H, Dosing Weight 110, kg, PRN Nausea & Vomiting, Start date: 07/04/13 10:48:00, Duration: 30 day, Stop date: 08/03/13 10:47:00 IVP No Longer Active Asumugha 07/04/2013 [facility] ibuprofen 600 mg, 1 tab, Route: PO, Drug form: TAB, Q6H, Dosing Weight 110, kg, PRN Pain Score 1-5, Start date: 07/04/13 10:48:00, Duration: 30 day, Stop date: 08/03/13 10:47:00 PO No Longer Active Asumugha 07/04/2013 [facility] bisacodyl 15 mg, 3 tab, Route: PO, Drug form: ECTAB, Daily, Dosing Weight 110, kg, PRN Other -See Comment, Start date: 07/04/13 10:48:00, Duration: 30 day, Stop date: 08/03/13 10:47:00 PO No Longer Active Asumugha 07/04/2013 [facility] lanolin topical 1 appl, Route: TOP, PRN, Drug form: CRM, PRN Other -See Comment, Start date: 07/04/13 10:48:00, Duration: 30 day, Stop date: 08/03/13 10:47:00 TOP No Longer Active Asumugha 07/04/2013 [facility] zolpidem 5 mg, 1 tab, Route: PO, Drug form: TAB, Bedtime, Dosing Weight 110, kg, PRN Sleep, Start date: 07/04/13 10:48:00, Duration: 30 day, Stop date: 08/03/13 10:47:00 PO No Longer Active Asumugha 07/04/2013 [facility] acetaminophen-hydrocodone 325 mg-5 mg oral tablet 1 tab, Route: PO, Drug Form: TAB, Dosing Weight 110, kg, Q4H, PRN Pain Score 1-3, Start date: 07/04/13 10:48:00, Duration: 30 day, Stop date: 08/03/13 10:47:00 PO No Longer Active Asumugha 07/04/2013 [facility] acetaminophen 650 mg, 2 tab, Route: PO, Drug form: TAB, Q4H, Dosing Weight 110, kg, PRN Headache 1-3, Start date: 07/04/13 10:48:00, Duration: 30 day, Stop date: 08/03/13 10:47:00 PO No Longer Active Asumugha 07/04/2013 [facility] Lactated Ringers 1000ml+Pitocin 20 units IV (Premix) 20 unit 20 unit, 1,000 mL, Rate: 125 ml/hr, Infuse over: 8 hr, Dosing Weight 110, kg, Route: IV, Total Volume: 1,000 mL, Start date: 07/04/13 10:48:00, Duration: 2 day, Stop date: 07/06/13 10:47:00, Replace Every: 8 hr IV No Longer Active Asumugha 07/04/2013 [facility] Lactated Ringers IV 1,000 mL 1,000 mL, Rate: 100 ml/hr, Infuse over: 10 hr, Route: IV, Dosing Weight 110 kg, Total Volume: 1,000, Start date: 07/04/13 10:48:00, Duration: 30 day, Stop date: 08/03/13 10:47:00 IV No Longer Active Asumugha 07/04/2013 [facility] Demerol HCl 50 mg, Route: IV, Q4H, Dosing Weight 110, kg, Start date: 07/04/13 0:00:00, Duration: 4 day, Stop date: 07/07/13 20:00:00 IV No Longer Active Asumugha 07/04/2013 [facility] Demerol HCl 50 mg, 1 mL, Route: IV, Drug form: INJ, Q4H, Dosing Weight 110, kg, PRN Pain Score 7-10, Start date: 07/03/13 20:30:00, Duration: 4 day, Stop date: 07/07/13 20:29:00 IV No Longer Active Asumugha 07/04/2013 [facility] Phenergan + Sodium Chloride 0.9% IV 50 mL 12.5 mg, 0.5 mL, Route: IVPB, Q4H, Dosing Weight 110, kg, PRN Nausea, Start date: 07/03/13 20:27:00, Duration: 30 day, Stop date: 08/02/13 20:26:00 IVPB No Longer Active Asumugha 07/04/2013 [facility] oxytocin-add to current IV 20 unit, 2 mL, Route: INJ, Drug form: SOLN, ONCALL, Dosing Weight 110, kg, Start date: 07/03/13 14:00:00, Duration: 2 day, Stop date: 07/05/13 13:59:00 INJ No Longer Active Asumugha 07/03/2013 [facility] citric acid-sodium citrate 30 mL, Route: PO, Drug Form: SOLN, Dosing Weight 110, kg, ONCALL, Start date: 07/03/13 14:00:00, Duration: 30 day, Stop date: 08/02/13 13:59:00 PO No Longer Active Asumugha 07/03/2013 [facility] carboprost 250 microgram, 1 mL, Route: IM, Drug form: INJ, ONCALL, Dosing Weight 110, kg, Start date: 07/03/13 14:00:00, Duration: 30 day, Stop date: 08/02/13 13:59:00 IM No Longer Active Asumugha 07/03/2013 [facility] famotidine 20 mg, 2 mL, Route: IVP, Drug form: INJ, ONCALL, Dosing Weight 110, kg, Start date: 07/03/13 14:00:00, Duration: 30 day, Stop date: 08/02/13 13:59:00 IVP No Longer Active Asumugha 07/03/2013 [facility] misoprostol 1,000 microgram, 5 tab, Route: SD, Drug form: TAB, ONCALL, Dosing Weight 110, kg, Start date: 07/03/13 14:00:00, Duration: 1 doses or times SD No Longer Active Asumugha 07/03/2013 [facility] methylergonovine 0.2 mg, 1 mL, Route: IM, Drug form: INJ, ONCALL, Dosing Weight 110, kg, Start date: 07/03/13 14:00:00, Duration: 30 day, Stop date: 08/02/13 13:59:00 IM No Longer Active Asumugha 07/03/2013 [facility] Cervidil 10 mg, 1 supp, Route: VAG, Drug form: INS, ONCE, Dosing Weight 110, kg, Start date: 07/03/13 13:59:00, Duration: 1 doses or times, Stop date: 07/03/13 13:59:00 VAG No Longer Active Asumugha 07/03/2013 [facility] terbutaline 0.25 mg, 0.25 mL, Route: SUB-Q, Drug form: INJ, PRN, Dosing Weight 110, kg, PRN Other -See Comment, Start date: 07/03/13 13:59:00, Duration: 1 doses or times, Stop date: Limited # of times SUB-Q No Longer Active Asumugha 07/03/2013 [facility] ondansetron 4 mg, 2 mL, Route: IVP, Drug form: INJ, Q8H, Dosing Weight 110, kg, PRN Nausea & Vomiting, Start date: 07/03/13 13:59:00, Duration: 30 day, Stop date: 08/02/13 13:58:00 IVP No Longer Active Asumugha 07/03/2013 [facility] lidocaine 1% 20 mL, Route: PERCUT, Drug Form: INJ, Dosing Weight 110, kg, PRN, PRN Other -See Comment, Start date: 07/03/13 13:59:00, Duration: 1 doses or times, Stop date: Limited # of times PERCUT No Longer Active Asumugha 07/03/2013 [facility] Lactated Ringers IV 1,000 mL 1,000 mL, Rate: 125 ml/hr, Infuse over: 8 hr, Route: IV, Dosing Weight 110 kg, Total Volume: 1,000, Start date: 07/03/13 13:59:00, Duration: 30 day, Stop date: 08/02/13 13:58:00 IV No Longer Active Asumugha 07/03/2013 [facility] Lactated Ringers 1000ml+Pitocin 20 units IV (Premix) 20 unit 20 unit, 1,000 mL, Rate: 125 ml/hr, Infuse over: 8 hr, Dosing Weight 110, kg, Route: IV, Total Volume: 1,000 mL, Start date: 07/03/13 13:59:00, Duration: 2 day, Stop date: 07/05/13 13:58:00, Replace Every: 8 hr IV No Longer Active Asumugha 07/03/2013 [facility] lidocaine 1% injectable solution 0.25 mL, Route: INTRADERM, Drug Form: INJ, Dosing Weight 110, kg, PRN, PRN Other -See Comment, Start date: 07/03/13 13:59:00, Duration: 30 day, Stop date: 08/02/13 13:58:00 INTRADERM No Longer Active Asumugha 07/03/2013 [facility] Lactated Ringers Injection IV 1,000 mL 1,000 mL, Rate: 100 ml/hr, Infuse over: 10 hr, Route: IV, Dosing Weight 110 kg, Total Volume: 1,000, Bolus for regional anesthesia per unit protocol, Start date: 07/03/13 13:59:00, Duration: 30 day, Stop date: 08/02/13 13:58:00 IV No Longer Active Asumugha 07/03/2013 [facility] Lactated Ringers 1000ml+Pitocin 20 units IV (Premix Titrate) 20 unit 20 unit, 1,000 mL, Rate: Titrate, Dosing Weight 110, kg, Route: IV, Total Volume: 1,000 mL, Start date: 07/03/13 13:58:00, Duration: 2 day, Stop date: 07/05/13 13:57:00, Replace Every: 24 hr IV No Longer Active Asumugha 07/03/2013 [facility] Allergies, Adverse Reactions, Alerts Substance Category Reaction Severity Reaction type Status Date Reported Comments Source Stadol Assertion itch Drug allergy Active [facility] sulfa drugs Assertion Drug allergy Active [facility] Immunizations Immunization Date Given Site Status Last Updated Comments Source influenza virus vaccine, inactivated 07/06/2013 Right deltoid completed Efren [facility] influenza virus vaccine, inactivated 07/06/2013 completed Efren [facility] Results Order Name Results Value Reference Range Date Interpretation Comments Source HEMATOLOGY Hct 28.9 36.0 - 48.0 07/05/2013 LOW [facility] HEMATOLOGY Hgb 9.2 12.0 - 16.0 07/05/2013 LOW [facility] BLOOD BANK RESULTS Rhig Reqd See Note 1 (07/03/2013 15:25:00) 07/03/2013 Normal <sup>1</sup>Result Comment: 07/03/2013 17:07 [id number]
This patient is not a candidate for Rh(O)D immune globulin. [facility] BLOOD BANK RESULTS Antibody Scrn Negative (07/03/2013 15:25:00) 07/03/2013 Normal [facility] BLOOD BANK RESULTS ABO/Rh O POS 07/03/2013 Unknown [facility] HEMATOLOGY Segs-Bands # 4.2 1.5 - 8.1 07/03/2013 Normal [facility] HEMATOLOGY Basophils # 0.0 0.0 - 0.2 07/03/2013 Normal [facility] HEMATOLOGY Eosinophils # 0.1 0.0 - 0.5 07/03/2013 Normal [facility] HEMATOLOGY Lymphocytes # 1.0 1.0 - 5.5 07/03/2013 Normal [facility] HEMATOLOGY Monocytes # 0.4 0.0 - 0.8 07/03/2013 Normal [facility] HEMATOLOGY Basophils 0.2 0.0 - 1.0 07/03/2013 Normal [facility] HEMATOLOGY Segs 73.4 45.0 - 75.0 07/03/2013 Normal [facility] HEMATOLOGY Lymphocytes 17.8 20.0 - 40.0 07/03/2013 LOW [facility] HEMATOLOGY Monocytes 7.6 2.0 - 12.0 07/03/2013 Normal [facility] HEMATOLOGY Eosinophils 1.0 0.0 - 4.0 07/03/2013 Normal [facility] HEMATOLOGY Platelet 300 133 - 450 07/03/2013 Normal [facility] HEMATOLOGY MPV 8.1 7.4 - 10.4 07/03/2013 Normal [facility] HEMATOLOGY RBC 3.86 4.20 - 5.40 07/03/2013 LOW [facility] HEMATOLOGY Hgb 11.5 12.0 - 16.0 07/03/2013 LOW [facility] HEMATOLOGY WBC 5.7 3.7 - 10.4 07/03/2013 Normal [facility] HEMATOLOGY MCV 94.7 81.0 - 99.0 07/03/2013 Normal [facility] HEMATOLOGY MCH 29.8 27.0 - 31.0 07/03/2013 Normal [facility] HEMATOLOGY Hct 36.6 36.0 - 48.0 07/03/2013 Normal [facility] HEMATOLOGY RDW 14.5 11.5 - 14.5 07/03/2013 Normal [facility] HEMATOLOGY MCHC 31.5 32.0 - 36.0 07/03/2013 LOW [facility] IMMUNOLOGY Treponemal Scr Non Reactive *NA* (07/03/2013 15:25:00) Non Reactive 07/03/2013 [facility] [place] IMMUNOLOGY Hep Bs Ag Negative *NA* (07/03/2013 15:25:00) Negative 07/03/2013 NA [facility] CHEMISTRY Temp Cord Jg 37.0 07/03/2013 NA [facility] CHEMISTRY BE Cord Jg -4 07/03/2013 NA [facility] CHEMISTRY pH Cord Jg 7.31 7.16 - 7.41 07/03/2013 Normal [facility] CHEMISTRY PCO2 Cord Jg 45 31 - 65 07/03/2013 Normal [facility] CHEMISTRY HCO3 Cord Jg 23 07/03/2013 NA [facility] CHEMISTRY PO2 Cord Jg 24 13 - 39 07/03/2013 Normal [facility] Pathology Reports No Data Provided for This Section Diagnostic Reports No Data Provided for This Section Consultation Notes No Data Provided for This Section Discharge Summaries No Data Provided for This Section History and Physicals No Data Provided for This Section Vital Signs Vital Sign Value Date Comments Source Weight 104.545 02/29/2016 [facility] Systolic (mm Hg) 104 02/29/2016 [facility] Diastolic (mm Hg) 70 02/29/2016 [facility] Temperature Oral (F) 98.1 F 02/29/2016 [facility] Temperature Oral (F) 98.0 F 05/27/2015 [facility] Respitory Rate 18 05/27/2015 [facility] Heart Rate 105 05/27/2015 [facility] BMI Calculated 42.16 05/27/2015 [facility] Weight 104.545 [...] 07/04/2013 [facility] Height 157.48 cm 07/04/2013 [facility] Height 157.48 cm 07/03/2013 [facility] Weight 110 07/03/2013 [facility] Encounters Location Location Details Encounter Type Encounter Number Reason For Visit Attending Provider ADM Date DC Date Status Source [facility] Inpatient [id number] KRISTAL URIOSTEGUI 07/03/2013 07/06/2013 Discharged [facility] [id number] Tanvir [place] 05/27/2015 05/27/2015 [facility] [id number] Isatunathaniel [place] 09/13/2015 09/13/2015 [facility] [id number] Trace Lugo 02/29/2016 02/29/2016 [facility] Procedures Procedure Code Date Perfomer Comments Source Repair of Other Current Obstetric Laceration [id number] 07/04/2013 [facility] Medical Induction of Labor [id number] 07/03/2013 [facility] Assessment and Plan No Data Provided for This Section Plan of Care No Data Provided for This Section Social History Social History Date Source Social History TypeResponse Smoking Status Never smoker; Exposure to Tobacco Smoke None; Cigarette Smoking Last 365 Days No; Reg Smoking Cessation Counseling No 02/29/2016 [facility] Family History No Data Provided for This Section Advance Directives No Data Provided for This Section Functional Status No Data Provided for This Section
[2019-04-06] MEDS ORDERED: TETANUS/DIPHTHERIA TOX ADULT 0.5 ML SYR IM STA (13:50)
[2019-04-06] MEDS ORDERED: TETANUS/DIPHTHERIA TOX ADULT 0.5 ML SYR ONE (14:11)
[2019-04-06 14:33] VITALS: BP 122/78
== END 2019-04-06 14:42 | disposition home or self-care (01) ==
LOC: FSED 13:23
DX: H57.11 Ocular pain, right eye (principal); S05.01XA Injury of conjunctiva and corneal abrasion without foreign body, right eye, initial encounter; W50.0XXA Accidental hit or strike by another person, initial encounter; Y92.008 Other place in unspecified non-institutional (private) residence as the place of occurrence of the external cause
CPT/HCPCS: 90471; 90714; 96372; 99282

== ENCOUNTER 2023-01-17 12:51 | Emergency (ER) | payer OTHER ==
[~2023-01-17] VITALS: Ht 157.5 cm; Wt 116.1 kg
[2023-01-17] MEDS ORDERED: AMOXICILLIN500 MG PO (13:12)
== END 2023-01-17 13:35 | disposition home or self-care (01) ==
LOC: FSED 12:56
DX: J03.00 Acute streptococcal tonsillitis, unspecified (principal)
CPT/HCPCS: 83518; 99283

== ENCOUNTER 2023-03-23 00:04 | Emergency (ER) | payer OTHER ==
[~2023-03-23] VITALS: Ht 157.5 cm; Wt 116.1 kg
[~2023-03-23 00:04] MED LIST: AMOXICILLIN500 MG PO
[2023-03-23 00:20] VITALS: O2SAT 97
[2023-03-23] MEDS ORDERED: CLEOCIN HCL300 MG PO ×2 (00:58→01:01)
[2023-03-23] MEDS ORDERED: MUPIROCIN22 GM TOP ×2 (00:58→01:01)
== END 2023-03-23 02:18 | disposition home or self-care (01) ==
LOC: FSED 00:37
DX: N61.1 Abscess of the breast and nipple (principal); F17.210 Nicotine dependence, cigarettes, uncomplicated
CPT/HCPCS: 99282